=== PATIENT | male | born 1940 | race Asian ===

== ENCOUNTER → 2018-05-31 | Outpatient (CLI) | payer MEDICARE, OTHER ==
[~2018-05-31] MED LIST: GADOBUTROL 1 MMOL/ML 10 ML VIAL IVP ONE
== END | disposition home or self-care (01) ==
LOC: RADMN 10:19
PROVIDERS: ATTEND Internal Medicine
DX: R90.82 White matter disease, unspecified (principal); R42 Dizziness and giddiness
CPT/HCPCS: 70551; A9585

== ENCOUNTER 2023-09-09 10:52 | Emergency (ER) | payer MEDICARE, OTHER ==
[~2023-09-09] VITALS: Ht 167.6 cm; Wt 72.7 kg
[2023-09-09 10:58] VITALS: BP 139/77; PULSE 86; RESP 18; TEMP 98.4
[2023-09-09] MEDS ORDERED: SITA1TBM4 PO (11:04)
[2023-09-09] MEDS ORDERED: ATOR20TA PO (11:04)
[2023-09-09] MEDS ORDERED: ASPI81TA87 PO (11:04)
[2023-09-09] MEDS ORDERED: NIFE-40 PO (11:04)
[2023-09-09] MEDS ORDERED: TELM80TA2 PO (11:04)
[2023-09-09] MEDS ORDERED: FINA-27 PO (11:04)
[2023-09-09] MEDS ORDERED: [UNRECOGNIZED DRUG - CODE] PO (11:04)
[2023-09-09] MEDS ORDERED: ADVAIR IH (11:04)
[2023-09-09] MEDS ORDERED: TIOT185 IH (11:04)
[2023-09-09] MEDS ORDERED: FLUT15.812 NASAL (11:04)
[2023-09-09 15:12] LABS: BASOPHILS % (AUTO) 0.8 % (0.0-2.0); EOSINOPHILS % (AUTO) 3.9 % (1.0-6.0); HEMATOCRIT 39.7 % (41-53); LYMPHOCYTES # (AUTO) 1.6 K/uL (1.0-4.8); LYMPHOCYTES % (AUTO) 24.5 % (22.0-44.0); MEAN CORPUSCULAR HEMOGLOBIN 28.6 pg (26.0-34.0); MEAN CORPUSCULAR HGB CONC 32.8 G/dL (31.0-37.0); MEAN CORPUSCULAR VOLUME 87 fL (80-100); MONOCYTES # (AUTO) 0.8 K/uL (0.1-1.0); MONOCYTES % (AUTO) 12.4 % (2.0-9.0); NEUTROPHILS # (AUTO) 3.9 K/uL (1.8-7.7); NEUTROPHILS % (AUTO) 58.4 % (40.0-70.0); PLATELET COUNT (AUTO) 123 K/uL (150-450); RED BLOOD CELL COUNT(AUTO) 4.55 MIL/uL (4.50-5.90); RED CELL DISTRIBUTION WIDTH 14.9 % (11.5-14.5); WHITE BLOOD COUNT (AUTO) 6.6 K/uL (4.5-11.0)
[2023-09-09 15:26] LABS: CALCIUM, TOTAL 9.5 mg/dL (8.8-10.5); CREATININE 1.6 mg/dL (0.60-1.30); POTASSIUM 4.6 mmol/L (3.5-5.1)
[2023-09-09 15:32] LABS: ALBUMIN 3.3 g/dL (3.4-5.0); BILIRUBIN,TOTAL 0.4 mg/dL (0.1-1.0); TOTAL PROTEIN, SERUM 8.3 g/dL (6.4-8.2)
[2023-09-09] MEDS ORDERED: DOXY-354 PO (16:28)
[2023-09-09] MEDS ORDERED: TRAM-559 PO (16:29)
[2023-09-09] MEDS: TraMADol HCL 50 MG TABLET PO ONE (16:31)
== END 2023-09-09 16:40 | disposition home or self-care (01) ==
LOC: EMS 10:57
DX: N50.812 Left testicular pain (principal); E11.9 Type 2 diabetes mellitus without complications; I10 Essential (primary) hypertension; Z88.0 Allergy status to penicillin
CPT/HCPCS: 76870; 80053; 85025; 99284